=== PATIENT | female | born 1965 | race Caucasian/White ===

== ENCOUNTER 2016-10-27 07:28 | Day surgery (SDC) | payer OTHER ==
[2016-10-27] VITALS (11 sets, daily range): BP systolic 106–139; BP diastolic 62–90; PULSE 64–84; RESP 13–17; O2SAT 91–98
[~2016-10-27] VITALS: Ht 167.6 cm; Wt 114.4 kg
[~2016-10-27 07:28] MED LIST: ATEN50TA PO; BIOT1000 PO; CHOL10008 PO; FOLI1TAB50 PO; GLUC-91 PO; LEVO50TA39 PO; Lactated Ringer's 1,000 ML IV SCH; MILK140C PO; OMEG1CAP56 PO; OMEP20CA11 PO; SIMV20TA4 PO; VARE1TAB22 PO; [UNRECOGNIZED DRUG - CODE] MC
[2016-10-27] MEDS ORDERED: Propofol 10,000 mCg/mL 20 mL Inj ONE (07:29)
[2016-10-27] MEDS ORDERED: Succinylcholine Chloride 20 mg/mL 5 mL Inj ONE (07:29)
[2016-10-27] MEDS ORDERED: Neostigmine 1 mg/mL 10 mL Inj ONE (07:29)
[2016-10-27] MEDS ORDERED: Rocuronium 10 mg/mL 5 mL Inj ONE (07:29)
[2016-10-27] MEDS ORDERED: fentaNYL-PF 50 mCg/mL 2 mL Inj ONE (07:29)
[2016-10-27] MEDS ORDERED: Dexamethasone 4 mg/mL Inj ONE (07:29)
[2016-10-27] MEDS ORDERED: Phenylephrine 10,000 mCg/mL Inj ONE (07:29)
[2016-10-27] MEDS ORDERED: Ondansetron 2 mg/mL 2 mL Inj ONE (07:29)
[2016-10-27] MEDS ORDERED: Glycopyrrolate 0.2 MG/ML 1mL Inj ONE (07:29)
[2016-10-27] MEDS ORDERED: Lactated Ringer's 1,000 ML IV ONE (08:08)
--- NOTE | 2016-10-27 08:58 | PCM.HPANE ---
Patient Data Date of Service: October 27, 2016 Surgeon Admitting Provider: Attending Provider:Raven Jeffery MD Primary Care Physician:Lelia Weiss Other Provider:Casey Varghese Anesthesia Reason for Visit Biliary Colic Ht/WT & BMI Height (Feet): 5 Height (Inches): 6.00 Weight (Kilograms): 114.441 Body Mass Index 40.00 Allergies Coded Allergies: codeine (Verified Allergy, Unknown, UNKNOWN, 10/22/16) [place] And Derivatives (Verified Adverse Reaction, Severe, RED, ITCHY BUMPS, 10/22/16) lactose (Verified Adverse Reaction, Severe, NAUSEA, FLU-LIKE SX, 10/22/16) nylon (Verified Adverse Reaction, Severe, ITCH, BURNING, RASH, 10/22/16) Uncoded Allergies: ALMONDS (Adverse Reaction, Severe, BURNING MOUTH, 10/22/16) Past Anesthesia History Anesthesia History: Positive for:: Fam Anesthesia Reaction (MOTHER'S BP DROPPED SEVERLY ), Denies:: Abnormal Airway, Anesthesia Reactions, Difficult Intubation, Fam Malignant Hypertherm, Malignant Hyperthermia Diabetes History Hx Diabetes?: No MRSA MRSA: No Medications Home Meds Incl Beta Malka: Yes Date Beta Malka Taken: October 27, 2016 Time Beta Malka Taken: 0600 Reported Medications Milk Thistle Fruit Extract (Milk Thistle)140 Mg Ardojyb751 Mg PO DAILY 10/22/16 Gluc/Richie-MSM#1/Vit C/Elbert/Bor (Njvtngm-Qjbkm-INJ Complex Cplt)1 Each Tablet1 Each PO DAILY 10/22/16 Creatine Monohydrate 5,000 Gm Powder5,000 Gm MC DAILY 10/22/16 Varenicline Tartrate (Chantix)1 Mg Tablet1 Mg PO BID 10/22/16 Simvastatin 20 Mg Bckqlu18 Mg PO HS Ref 0 10/22/16 Omeprazole 20 Mg Capsule.dr20 Mg PO DAILY Ref 0 10/22/16 Cholecalciferol (Vitamin D3) (Vitamin D3)1,000 Unit Tab.chew5,000 Unit PO DAILY 07/11/15 Simvastatin 20 Mg Bgnhgj78 Mg PO HS Ref 0 07/11/15 Holton-3 Fatty Acids/Fish Oil (Holton 3 1,000 mg Softgel)1 Each Capsule1 Each PO DAILY 07/11/15 Mv,Ca,Min/Iron Fum/FA/Vit K (Multi For Her Tablet)1 Each Tablet1 Each PO DAILY 07/11/15 Biotin (Willem Biotin)10,000 Mcg Kjfahvv71,000 Mcg PO DAILY 07/11/15 Levothyroxine (Levoxyl)50 Mcg Rfldri10 Mcg PO DAILY Ref 0 07/11/15 Atenolol 50 Mg Bysucl37 Mg PO DAILY #30 TABLET Ref 0 07/11/15 Discontinued Reported Medications Vitamin B Complex & Vit C No.3 (B Complex with Vitamin C)1 Each Capsule1 Each PO 07/11/15 Magnesium 200 Mg Fytyqr196 Mg PO 07/11/15 Clindamycin Phosphate (Clindamycin Phosphate Topical)60 Ml Lotion1 Applic TP BID #60 ML Ref 0 07/11/15 History History of ENT Problems?: Yes HEENT History: Denies:: Abnormal Airway Difficult Intubation Dysphagia Hearing Problem Denture Type: None Teeth Condition: Within Normal Limits Tooth Decay Hx of Heart Problems?: Yes Cardiovascular History: Positive for:: Hypertension (HYPERLIPIDEMIA) Denies:: AICD Atrial Fibrillation Chest Pain Heart Murmur Pacemaker Valvular Heart Disease Hx of Respiratory Problem?: No Respiratory History: Denies:: Asthma COPD Cough Hemoptysis Pneumonia Tuberculosis Use of C-PAP Machine Hx Neurologic Problems?: No Neurological History: Denies:: CVA Dementia Hx of GI Problems?: Yes Other History/Comment HCV s/p harvoni undedectable Hx of Problems?: No Female Hx: Denies:: Currently (POST MENSES) Skin History: Positive for:: History Skin Disorders? (HX HIDRADENITIS) Denies:: Pressure Ulcers Hx Musculoskeletal Problems?: No Musculoskeletal History: Denies:: Joint Replacement Hx of Psycho/Social Problems?: No Psycho Social History: Denies:: Anxiety Hx Depression Hx Surgeries?: No Hx Any Other Health Problems?: Yes Other History: Positive for:: Thyroid Disease (S/P THYROID BX "GOITER") Denies:: Cancer Endocrine Disease Hospitalization History Blood Transfusions: Denies:: Blood Transfusions Hx Diabetes: No Hx Alcohol Use: No Smoking Status: Former Smoker Have You Smoked inLast 12 mo: YesApprox How Many Cigarettes/day: 1 PPD X 39YRS Stop/Bang S-Snoring: Do You Snore Loudly: No T-Tired: feel tired, fatigued: No O-Obsered: Observed not breath: No P-Blood Pressure: treated: Yes B- Body Mass Index > 35 kg/m2: Yes A- Age over 50: Yes N- Neck Large Circumference: Yes G- Gender Male: No TERESA Total Score: 4 TERESA Risk Assessment: High Risk, =/>3 Yes TERESA Category 4 OutPt Procedure: Yes Risk Assessment Category Category 1A: Patient has history of documented sleep apnea, and HAS NOT received any narcotic, sedative or anesthesia administration during this stay. Category 1B: Patient has history of documented sleep apnea, and HAS received any narcotic , sedative or anesthesia administration during this stay Category 2: Patient has SUSPECTED Obstructive Sleep Apnea, and HAS received any narcotic , sedative or anesthesia administration during this stay. Category 3: Patient has SUSPECTED Obstructive Sleep Apnea and HAS NOT received narcotic, sedative or anesthesia administration during this stay. Category 4: Outpatient in Procedural Areas with known sleep apnea or who screen positive for High Risk via the STOP/BANG questionnaire. Exam Exam Vital Signs Vital Signs Date Time Temp Pulse Resp B/P Pulse Ox O2 Delivery O2 Flow Rate FiO2 10/27/16 08:09 35.1 77 17 115/85 96 Room Air General Appearance: Alert, Oriented X3, Cooperative, No Acute Distress HEENT/AIRWAY: MP 2 Lungs: Clear to Auscultation, Normal Air Movement Heart: Exam Unremarkable, Regular Rate/Rhythm, No Murmurs/Rubs/Gallops Meds/Labs/Diagnostics Admission Meds Current Medications Lactated Ringer's (Lr) 1,000 ml @ ud STK-MED ONCE IV Last administered on t 08:08; Start 10/27/16 at 08:08; Stop 10/27/16 at 08:09; Status DC Plan Impression Patient chart reviewed, patient interviewed and anesthestic plan with risks, benefits, and alternatives discussed, and informed consent obtained. NPO per Anesth. Guidelines: Yes ASA Physical Status: ASA3 Severe Disease Anesthetic Plan: GA Bene/Risks/Altern/Consents: Yes HP Complete Prior to Induction: Yes Jake Knott MD October 27, 2016 08:58
[2016-10-27] MEDS ORDERED: Bupivacaine-MPF 0.25%/EPI 30 mL Inj INFILTRATE ONE (09:12)
[2016-10-27] MEDS ORDERED: Lactated Ringer's 1,000 ML IV SCH (09:38)
[2016-10-27] MEDS ORDERED: Lactated Ringer's 500 ML IV PRN (09:38)
[2016-10-27] MEDS ORDERED: EPHEDrine Sulfate 50 mg/mL Inj IVPUSH PRN (09:40)
[2016-10-27] MEDS ORDERED: HYDROmorphone 1 mg/mL Inj IVPUSH PRN (09:40)
[2016-10-27] MEDS ORDERED: hydrALAZINE 20 mg/mL Inj IVPUSH PRN (09:40)
[2016-10-27] MEDS ORDERED: Phenylephrine 10,000 mCg/mL Inj IVPUSH PRN (09:40)
[2016-10-27] MEDS ORDERED: Atropine 0.4 mg/mL Inj IVPUSH PRN (09:40)
[2016-10-27] MEDS ORDERED: MetoCLOpramide 5 mg/mL 2 mL Inj IVPUSH PRN (09:40)
[2016-10-27] MEDS ORDERED: Labetalol 5 mg/mL 4 mL Inj IV PRN (09:40)
[2016-10-27] MEDS ORDERED: Ondansetron 2 mg/mL 2 mL Inj IVPUSH PRN (09:40)
--- NOTE | 2016-10-27 10:30 | PCM.ANEP1 ---
Post Anesthesia Phase 1 PACU Phase 1 Assessment Date of Service: October 27, 2016 Vital Signs 36.7 139/81 88 24 94% FM Anesthetic Administered: GA Level of Alertness: Sleepy, easy to arouse ROSSI's with Equal Strength: Yes Pain: No Nausea or Vomiting: No Cardiovascular Function and Hy: Yes Oxygen Delivery: Simple Mask Lungs: Clear to Auscultation, Normal Air Movement Complications: No Follow up Care: No Patient Instructions Provided: Yes Jake Knott MD October 27, 2016 10:30
[2016-10-27] MEDS: fentaNYL-PF 50 mCg/mL 2 mL Inj IVPUSH PRN ×2 (10:35→10:50)
[2016-10-27] MEDS ORDERED: oxyCODONE-Acetamin 5-325 mg Tablet PO PRN (10:40)
--- NOTE | 2016-10-27 10:42 | PCM.SURGOP ---
Surgical Operative Report Date of Service: October 27, 2016 Pre Operative Diagnosis Biliary colic Post Operative Diagnosis Biliary colic Procedure: 1. Laparoscopic cholecystectomy 2. Primary umbilical hernia repair, 1 cm defect Surgeon and Blood Tester Fowl: Surgeon: Raven Jeffery MD Assistants: Shahram Buchanan PA-C The presence of an sales assistant entertainment and media was necessary for dissection and retraction. Indication for Procedure This is a 51-year-old woman with postprandial epigastric and right upper quadrant pain. Abdominal ultrasound was performed revealing cholelithiasis. She was diagnosed with biliary colic and consented for laparoscopic cholecystectomy. Findings: 1. Mild inflammation of the gallbladder, with pericholecystic edema. 2. Primary umbilical hernia, 1 cm defect, closed at the end of the case Procedure Details The patient was brought to the operating room and placed in supine position. General endotracheal anesthesia was smoothly induced. Antibiotics were infused. A warming blanket and SCDs were placed. A foot board was placed. The operative field was prepped and draped in sterile fashion. A pause was performed to confirm the correct patient, procedure, site, and side. A transverse 10 mm incision was made just below the umbilicus. There was a small umbilical hernia. The first 11 mm trocar was placed into the abdomen using an Optiview port through the umbilical hernia defect. Three additional 5 mm ports were placed in the epigastrium and right upper quadrant. The gallbladder was identified and lifted cephalad. Dissection then proceeded to identify the cystic duct, cystic artery, and to expose the bottom one third of the cystic plate. Once there were two and only two structures entering the gallbladder, the cystic duct was clipped on the gallbladder and patient side, and the cystic artery was clipped twice on the patient's side and once on the gallbladder side, and both were then divided. The gallbladder was then removed from its bed on the liver with electrocautery. Prior to completely removing the gallbladder, a final look was taken at the stump of the cystic artery and cystic duct, and there was no bleeding or bile leak. The gallbladder was then fully removed from the liver and placed in an EndoCatch bag and removed. The three 5 mm ports were removed under direct vision, the 11 mm mid abdominal port was removed, and simple 0 PDS interrupted stitch was used to close the umbilical hernia defect laparoscopically using a suture passer device. There was no fascial defect at the end of the case. 0.5% Marcaine with epinephrine was infused at all port sites for postoperative analgesia. The skin was closed with subcuticular 4-0 Monocryl. Sterile dressings were placed. The patient was awakened from general anesthesia and taken to the postoperative care unit in good condition. Complications There were no periprocedural complications identified. Surgical Specimen Removed: Yes Specimen sent to Pathology: Yes Surgical Specimen description: Gallbladder Anesthetic Plan: GA Grafts, Implants: None Output, Estimated Blood Loss: 2 (ml) Blood Administration during patricio: No Raven Jeffery MD October 27, 2016 10:42
--- NOTE | 2016-10-28 10:52 | PATH ---
SURGICAL PATHOLOGY Attending Physician:Raven Jeffery MD CASE STATUS: Signed Out PATIENT NAME: LUISA BIRD PID: [id number] : 1965 DATE COLLECTED:10/27/2016 15:07 SPECIMEN: Gallbladder CLINICAL HISTORY: BILIARY COLIC 1. GALLBLADDER FINAL DIAGNOSIS: 1.GALLBLADDER: CHOLELITHIASIS WITH ASSOCIATED CHRONIC CHOLECYSTITIS. BENIGN ADENOMYOMA. ICD10 CODE K80.66 GROSS DESCRIPTION: The specimen is received in one formalin filled container labeled with the patient's name, sublabeled "gallbladder" and consists of an intact 6.5 x 3.0 x 1.5 CM gallbladder. The serosa is smooth. The wall is 0.2-0.4 CM in thickness. At one end of the gallbladder there is a 1.8 x 1.0 CM thickened and opened area. The mucosa is a dark green lujan in color. The lumen contains a green mucoid material and one dark green brown rough calculus which measures 0.7 CM in greatest dimension. 5 help desk representative sections are submitted in 2 cassettes. 10/27/2016 [facility] MICRO DESCRIPTION: See diagnosis. ICD-9 CODES: CPT CODES: 1: 89799 Electronically Signed Out Stanton Jones MD [facility] Pathology [facility] [address] [place] [address] Technical component performed at [facility], [facility] [address], [place], [address]
== END 2016-10-27 23:59 | disposition home or self-care (01) ==
LOC: SAS 07:28
PROVIDERS: ATTEND Surgery
DX: K80.10 Calculus of gallbladder with chronic cholecystitis without obstruction (principal); K42.9 Umbilical hernia without obstruction or gangrene; I10 Essential (primary) hypertension; E78.5 Hyperlipidemia, unspecified; E03.9 Hypothyroidism, unspecified; K21.9 Gastro-esophageal reflux disease without esophagitis; B18.2 Chronic viral hepatitis C; E66.01 Morbid (severe) obesity due to excess calories; E04.2 Nontoxic multinodular goiter; Z87.891 Personal history of nicotine dependence; Z68.41 Body mass index [BMI] 40.0-44.9, adult
CPT/HCPCS: 47562; 49652; J0330; J1100; J2250; J2370; J2405; J2710; J3010; J7120